=== PATIENT | male | born 1950 | race Caucasian/White ===

== ENCOUNTER → 2024-05-31 | Outpatient (CLI) | payer MEDICARE | LOC: M PLARAD 12:06 | PROVIDERS: ATTEND Internal Medicine Medical Oncology | DX: C77.3 Secondary and unspecified malignant neoplasm of axilla and upper limb lymph nodes (principal) | CPT/HCPCS: 78815; A9552 ==

== ENCOUNTER → 2024-06-23 | Outpatient (CLI) | payer MEDICARE ==
[~2024-06-23] VITALS: Ht 172.7 cm; Wt 104.0 kg
[~2024-06-23] MED LIST: ATEN100T PO; B-12100010 PO; CHOL125C5 PO; CINN500C2 PO; LIDOCAINE 1% MDV 20ML VIAL As Ordered ONE; LIDOCAINE W/EPINEPHRINE 1% 20ML VIAL As Ordered ONE; MIDAZOLAM INJ 2MG/2ML VIAL As Ordered ONE; TUME1CAP PO; ceFAZolin 2 GM/D5W 50 ML IV BAG As Ordered ONE; ceFAZolin SOD 2 GM in IV 1 EA IV ONE; fentaNYL 100 MCG/2 ML INJECTION As Ordered ONE
[2024-06-23 11:50] VITALS: TEMP 97.5
[2024-06-23 14:25] VITALS: BP 157/90; O2SAT 97
== END ==
LOC: M IRPRO 11:33
PROVIDERS: ATTEND Specialist
DX: C77.3 Secondary and unspecified malignant neoplasm of axilla and upper limb lymph nodes (principal); C77.1 Secondary and unspecified malignant neoplasm of intrathoracic lymph nodes
CPT/HCPCS: 36561; 99152; 99153; J0690; J1642; J2250; J3010

== ENCOUNTER → 2024-06-29 | Outpatient (CLI) | payer MEDICARE ==
[~2024-06-29] MED LIST changes: -LIDOCAINE 1% MDV 20ML VIAL As Ordered ONE; -LIDOCAINE W/EPINEPHRINE 1% 20ML VIAL As Ordered ONE; -MIDAZOLAM INJ 2MG/2ML VIAL As Ordered ONE; -ceFAZolin 2 GM/D5W 50 ML IV BAG As Ordered ONE; -ceFAZolin SOD 2 GM in IV 1 EA IV ONE; -fentaNYL 100 MCG/2 ML INJECTION As Ordered ONE
== END ==
LOC: M ONCR 14:20
PROVIDERS: ATTEND General Practice
DX: C44.629 Squamous cell carcinoma of skin of left upper limb, including shoulder (principal); C77.0 Secondary and unspecified malignant neoplasm of lymph nodes of head, face and neck; Z80.0 Family history of malignant neoplasm of digestive organs; Z80.8 Family history of malignant neoplasm of other organs or systems; Z79.899 Other long term (current) drug therapy

== ENCOUNTER → 2024-08-02 | Outpatient (RCR) | payer MEDICARE, OTHER ==
[~2024-08-02] MED LIST changes: +ONDA-284 PO; +PROC10TA5 PO
== END ==
LOC: M ONCR 07-12 07:48
PROVIDERS: ATTEND General Practice
DX: Z51.0 Encounter for antineoplastic radiation therapy (principal); C44.629 Squamous cell carcinoma of skin of left upper limb, including shoulder

== ENCOUNTER → 2024-08-26 | Outpatient (CLI) | payer MEDICARE, OTHER ==
[~2024-08-26] MED LIST changes: +ISOVUE-370 76% 100ML VIAL As Ordered ONE; +LIDO100S29 PO
== END ==
LOC: M RAD 08:21
PROVIDERS: ATTEND Otolaryngology
DX: R59.0 Localized enlarged lymph nodes (principal)
CPT/HCPCS: 70491; Q9967

== ENCOUNTER 2024-09-01 09:26 | Outpatient (RCR) | payer MEDICARE, OTHER ==
[~2024-09-01 09:26] MED LIST changes: -ISOVUE-370 76% 100ML VIAL As Ordered ONE
== END 2024-09-02 ==
LOC: M ONCR 09:26
PROVIDERS: ATTEND General Practice
DX: Z51.0 Encounter for antineoplastic radiation therapy (principal); C44.629 Squamous cell carcinoma of skin of left upper limb, including shoulder

== ENCOUNTER → 2024-09-19 | Outpatient (CLI) | payer MEDICARE, OTHER ==
[2024-09-19 09:39] LABS: BASO # 0.1 10^3/uL (0.0-0.2); BASO % 1.3 % (0.0-1.0); EOS # 0.2 10^3/uL (0.0-0.5); EOS % 3.8 % (0.0-3.0); HEMOGLOBIN 13.7 g/dl (13.5-17.5); LYMPH # 0.5 10^3/uL (1.5-5.0); LYMPH % 10.1 % (24.0-44.0); MEAN CORPUSCULAR HGB CONC 34.3 g/dl (32.0-36.5); MEAN CORPUSCULAR VOLUME 96.4 fl (80.0-96.0); MONO # 0.5 10^3/uL (0.0-0.8); MONO % 10.1 % (2.0-8.0); NEUTROPHILS # 3.3 10^3/uL (1.5-8.5); NEUTROPHILS % 74.5 % (36.0-66.0); PLATELET COUNT, AUTOMATED 194 10^3/uL (150-450); RED BLOOD COUNT 4.15 10^6/uL (4.30-6.10); WHITE BLOOD COUNT 4.5 10^3/uL (4.0-10.0)
[2024-09-19 10:09] LABS: ALBUMIN 3.7 G/DL (3.2-5.2); ALKALINE PHOSPHATASE 60 U/L (40-129); ALT/SGPT 21 U/L (7.0-40); AST/SGOT 20 U/L (<34); BILIRUBIN,TOTAL 0.6 MG/DL (0.3-1.2); BLOOD UREA NITROGEN 19 MG/DL (9-23); CALCIUM LEVEL 9.5 MG/DL (8.3-10.6); CARBON DIOXIDE LEVEL 28 MMOL/L (20-31); CHLORIDE LEVEL 102 MMOL/L (98-107); CREATININE FOR GFR 0.95 MG/DL (0.70-1.30); GLOMERULAR FILTRATION RATE > 60.0 (>42); GLUCOSE, FASTING 152 MG/DL (74-106); POTASSIUM SERUM 3.9 MMOL/L (3.5-5.1); SODIUM LEVEL 140 MMOL/L (136-145); TOTAL PROTEIN 6.9 G/DL (5.7-8.2)
[2024-09-19 10:10] LABS: FREE T4 1.11 NG/DL (0.89-1.76)
[2024-09-19 10:11] LABS: THYROID STIMULATING HORMONE 3.156 uIU/ML (0.55-4.78)
== END ==
LOC: M LAB 09:14
PROVIDERS: ATTEND Internal Medicine Medical Oncology
DX: C44.92 Squamous cell carcinoma of skin, unspecified (principal); Z79.899 Other long term (current) drug therapy

== ENCOUNTER → 2024-11-07 | Outpatient (CLI) | payer MEDICARE, OTHER ==
[~2024-11-07] MED LIST changes: +PRED10TA2 PO; +PRED20TA PO; +PRED5TA PO
== END ==
LOC: M PLARAD 11:11
PROVIDERS: ATTEND General Practice
DX: C44.629 Squamous cell carcinoma of skin of left upper limb, including shoulder (principal)
CPT/HCPCS: 78815; A9552

== ENCOUNTER → 2024-12-01 | Outpatient (CLI) | payer MEDICARE, OTHER | LOC: M ONCR 10:12 | PROVIDERS: ATTEND General Practice | DX: C44.629 Squamous cell carcinoma of skin of left upper limb, including shoulder (principal); Z79.620 Long term (current) use of immunosuppressive biologic; Z79.899 Other long term (current) drug therapy; Z92.3 Personal history of irradiation ==

== ENCOUNTER → 2025-03-14 | Outpatient (CLI) | payer MEDICARE, OTHER ==
[~2025-03-14] MED LIST changes: +ISOVUE-370 76% 100 ML VIAL As Ordered ONE
== END ==
LOC: M RAD 09:30
PROVIDERS: ATTEND Internal Medicine Medical Oncology
DX: C80.1 Malignant (primary) neoplasm, unspecified (principal); N20.0 Calculus of kidney; R93.2 Abnormal findings on diagnostic imaging of liver and biliary tract; R91.8 Other nonspecific abnormal finding of lung field; I70.0 Atherosclerosis of aorta; I25.10 Atherosclerotic heart disease of native coronary artery without angina pectoris; R59.0 Localized enlarged lymph nodes
CPT/HCPCS: 71260; 74177; Q9967

== ENCOUNTER → 2025-04-04 | Outpatient (CLI) | payer MEDICARE, OTHER ==
[~2025-04-04] MED LIST changes: -ISOVUE-370 76% 100 ML VIAL As Ordered ONE
== END ==
LOC: M PLARAD 14:58
PROVIDERS: ATTEND General Practice
DX: C44.629 Squamous cell carcinoma of skin of left upper limb, including shoulder (principal)
CPT/HCPCS: 78815; A9552